=== PATIENT | male | born 1975 | race African-American/Black ===

== ENCOUNTER 2019-03-31 10:16 | Emergency (ER) | payer SELFPAY ==
[2019-03-31] MEDS ORDERED: IPRATROPIUM/ALBUTEROL 0.5-2.5 MG/3 ML AMPUL NEB ONE ×2 (10:55→10:57)
[2019-03-31] MEDS ORDERED: METHYLPREDNISOLONE INJ 125 MG/2 ML SDV IV ONE (11:01)
--- NOTE | 2019-03-31 11:04 | ER Document Report ---
ED Medical Screen (RME) - General Chief Complaint: Asthma Exacerbation Stated Complaint: DIFFICULTY BREATHING Time Seen by Provider: 03/31/19 10:58 Mode of Arrival: Ambulatory Information source: Patient TRAVEL OUTSIDE OF THE [place] IN LAST 30 DAYS: No - HPI Patient complains to provider of: ASTHMA FLARED UP Notes: 03/31/19 11:02 Patient here with complaints of asthma flareup. Patient is a history of asthma. States been coughing for about a month now. Over the last few days, he is felt like his asthma has flared up. He is now feeling very short of breath. No fever. Chest pain with cough only. No hemoptysis. No leg pain or leg swelling, no history of DVT or PE, no cancer, no recent trips or surgeries. Patient is from [place], has been here since December. Exam Patient appears to be short of breath with tachypnea and increased work of breathing noted. Respiratory expiratory wheezing noted throughout. Heart s ounds normal. Plan CBC, CMP, troponin, EKG, chest x-ray, DuoNeb ordered in triage and started immediately. Solu-Medrol, IV. An initial examination was made on the patient as part of the triage process, and it was determined a more comprehensive evaluation was necessary. Initial labs were ordered and patient was transferred to another provider in the ED who assumed care and finished evaluation and plan. - Related Data Allergies/Adverse Reactions: No Known Allergies Allergy (Verified 03/31/19 10:57) Physical Exam - Vital signs Vitals: Temp Pulse Resp BP Pulse Ox 98.4 F 94 30 H 140/79 H 96 03/31/19 10:03/31/19 10:03/31/19 10:03/31/19 10:03/31/19 10:29 Course - Vital Signs Vital signs: Temp Pulse Resp BP Pulse Ox 98.4 F 94 30 H 140/79 H 96 03/31/19 10:03/31/19 10:03/31/19 10:03/31/19 10:03/31/19 10:29
[2019-03-31 11:41] LABS: ABSOLUTE EOSINOPHILS # (AUTO) 1.2 10^3/uL (0.0-0.6); ABSOLUTE LYMPHOCYTES (AUTO) 2.1 10^3/uL (0.5-4.7); ABSOLUTE MONOCYTES (AUTO) 0.6 10^3/uL (0.1-1.4); ABSOLUTE NEUT (AUTO) 3.9 10^3/uL (1.7-8.2); BASOPHILS % (AUTO) 0.5 % (0-2); EOSINOPHILS % (AUTO) 15.6 % (0-6); HEMATOCRIT 44.5 % (37.9-51.0); HEMOGLOBIN 14.8 g/dL (13.5-17.0); LYMPHOCYTES % (AUTO) 26.8 % (13-45); MEAN CORPUSCULAR HEMOGLOBIN 30.5 pg (27.0-33.4); MEAN CORPUSCULAR HGB CONC 33.2 g/dL (32.0-36.0); MEAN CORPUSCULAR VOLUME 92 fl (80-97); MONOCYTES % (AUTO) 7.6 % (3-13); PLATELET COUNT 252 10^3/uL (150-450); RED BLOOD COUNT 4.86 10^6/uL (4.35-5.55); RED CELL DISTRIBUTION WIDTH 13.4 % (11.5-14.0); SEGMENTED NEUTROPHILS % (AUTO) 49.5 % (42-78); TOTAL CELLS COUNTED % (AUTO) 100 %; WHITE BLOOD COUNT 7.9 10^3/uL (4.0-10.5)
[2019-03-31 12:00] LABS: ALANINE AMINOTRANSFERASE 39 U/L (21-72); ALBUMIN 3.9 g/dL (3.5-5.0); ALKALINE PHOSPHATASE 60 U/L (38-126); ANION GAP 9 (5-19); ASPARTATE AMINO TRANSFERASE 30 U/L (17-59); BILIRUBIN,DIRECT 0.2 mg/dL (0.0-0.4); BILIRUBIN,TOTAL 0.6 mg/dL (0.2-1.3); BLOOD UREA NITROGEN 11 mg/dL (7-20); CALCIUM 9.5 mg/dL (8.4-10.2); CARBON DIOXIDE 29 mmol/L (22-30); CHLORIDE 105 mmol/L (98-107); GLUCOSE 81 mg/dL (75-110); POTASSIUM 4.2 mmol/L (3.6-5.0); SODIUM 143.3 mmol/L (137-145)
--- NOTE | 2019-03-31 12:04 | RADIOLOGY REPORT (SQ) ---
EXAM DESCRIPTION: CHEST 2 VIEWS COMPLETED DATE/TIME: 03/31/2019 11:56 am REASON FOR STUDY: DYSPNEA COMPARISON: None. EXAM PARAMETERS: NUMBER OF VIEWS: two views TECHNIQUE: Digital Frontal and Lateral radiographic views of the chest acquired. RADIATION DOSE: NA LIMITATIONS: none FINDINGS: LUNGS AND PLEURA: No opacities, masses or pneumothorax. No pleural effusion. MEDIASTINUM AND HILAR STRUCTURES: No masses or contour abnormalities. HEART AND VASCULAR STRUCTURES: Heart normal size. No evidence for failure. BONES: No acute findings. HARDWARE: None in the chest. OTHER: No other significant finding. IMPRESSION: No acute abnormality of the lungs. No focal airspace opacity. TECHNICAL DOCUMENTATION: JOB ID: [id number] [employer] All Rights Reserved Reading location - IP/workstation name: [email or web address]
[2019-03-31] MEDS ORDERED: MAGNESIUM SULFATE/D5W 1 GM/100 ML RTUPB IV ONE ×2 (13:31→13:32)
[2019-03-31] MEDS ORDERED: ALBUTEROL SULFATE 0.083% NEB 2.5 MG/3 ML AMPUL NEB ONE (13:32)
--- NOTE | 2019-03-31 13:40 | ER Document Report ---
ED General - General Chief Complaint: Asthma Exacerbation Stated Complaint: DIFFICULTY BREATHING Time Seen by Provider: 03/31/19 10:58 Primary Care Provider: KAYLIN BELLO MD [ACTIVE STAFF] - Follow up in 1 week Mode of Arrival: Ambulatory TRAVEL OUTSIDE OF THE [place] IN LAST 30 DAYS: No - HPI Notes: Patient is a 43-year-old male with a history of asthma who presents to the emergency department complaining of an asthma flareup that has been ongoing over the last couple months, but increasing over the past week. Patient states that he has had flareups frequently like this in the past with associated wheezing, sob, and cough. Patient states that he does not have any more of his ventolin inhaler at his house which works well for him. Patient states he does have associated dry cough and some pleuritic pain only with the cough. Patient has otherwise been eating and drinking without difficulty. He is urinating normally and having normal bowel movements. Denies drug allergies. No other concerns or complaints. Denies any headache, fever, URI, sore throat, chest pain, palpitations, syncope, abdominal pain, nausea/vomiting/diarrhea, urinary retention, dysuria, hematuria, or rash. - Related Data Allergies/Adverse Reactions: No Known Allergies Allergy (Verified 03/31/19 10:57) Past Medical History - General Information source: Patient - Social History Smoking Status: Current Every Day Smoker Chew tobacco use (# tins/day): No Frequency of alcohol use: Rare Drug Abuse: None Family History: Reviewed & Not Pertinent Patient has suicidal ideation: No Patient has homicidal ideation: No Pulmonary Medical History: Reports: Hx Asthma Renal/ Medical History: Denies: Hx Peritoneal Dialysis Review of Systems - Review of Systems -: Yes All other systems reviewed and negative Physical Exam - Vital signs Vitals: Temp Pulse Resp BP Pulse Ox 98.4 F 94 30 H 140/79 H 96 03/31/19 10:29 03/31/19 10:29 03/31/19 10:29 03/31/19 10:03/31/19 10:29 - Notes Notes: PHYSICAL EXAMINATION: GENERAL: Well-appearing, well-nourished and in no acute distress. HEAD: Atraumatic, normocephalic. EYES: Pupils equal round and reactive to light, extraocular movements intact, sclera anicteric, conjunctiva are normal. ENT: Nares patent and without discharge. oropharynx clear without exudates. No tonsilar hypertrophy or erythema. Moist mucous membranes. NECK: Normal range of motion, supple without lymphadenopathy LUNGS: wheezing throughout. no retractions or significant tachypneia at this t aidee. HEART: Regular rate and rhythm without murmurs, rubs, gallops. ABDOMEN: Soft, nontender, nondistended abdomen. No guarding, no rebound. No masses appreciated. Normal bowel sounds present. No CVA tenderness bilaterally. Musculoskeletal: FROM to passive/active. Strength 5+/5. Josefina neg. No asymmetry to LE's. Extremities: No cyanosis, clubbing, or edema b/l. Peripheral pulses 2+. Cap illary refill less than 3 seconds. NEUROLOGICAL: Normal speech, normal gait. PSYCH: Normal mood, normal affect. SKIN: Warm, Dry, normal turgor, no rashes or lesions noted. Course - Re-evaluation Re-evalutation: 03/31/19 Patient is an afebrile, well-hydrated, 43-year-old male who presents the emergency department with acute asthma exacerbation. Vitals are currently acceptable without significant tachycardia, tachypnea, or hypoxia. PE is otherwise unremarkable. Patient is nontoxic-appearing and is tolerating p.o. without difficulty. Patient was given Solu-Medrol and breathing treatment at triage. I did add magnesium and another breathing treatment to his regimen. Patient's lung sounds have greatly improved since my initial evaluation. Patient states that he is feeling much better and would like to go home. Leobardo jacque was reevaluated and he was eating wings and fries as well as drinking soda. Patient is otherwise PERC/Wells negative. He has no chest pain at rest or any further shortness of breath, dyspnea. Low suspicion for any ACS, PE, pneumothorax, pericarditis, dissection, respiratory compromise, severe dehydration, sepsis, meningitis, or other systemic emergent condition at this time. Patient is aware that this condition can change from initial presentation and he needs to monitor symptoms closely and seek medical attention for any acute changes. Rx for a steroid taper. Dispensed ventolin inhaler. Recommend conservative measures for symptoms. Recheck with your PCM in 3-5 days. Return to the ED with any worsening/concerning symptoms otherwise as reviewed in discharge. Patient is in agreement. - Vital Signs Vital signs: Temp Pulse Resp BP Pulse Ox 98.4 F 94 30 H 140/79 H 96 03/31/19 10:29 03/31/19 10:29 03/31/19 10:29 03/31/19 10:29 03/31/19 10:29 - Laboratory Result Diagrams: 03/31/19 11:28 03/31/19 11:28 Laboratory results interpreted by me: 03/31/19 11:28 Eosinophils % 15.6 H Absolute Eosinophils 1.2 H Discharge - Discharge Clinical Impression: Acute asthma exacerbation Qualifiers: Asthma severity: mild Asthma persistence: intermittent Qualified Code(s): J45.21 - Mild intermittent asthma with (acute) exacerbation Condition: Stable Disposition: HOME, SELF-CARE Instructions: Asthma ([facility]) Additional Instructions: Maintain adequate fluid and food intake Use inhaler as directed Healthy diet Monitor symptoms for any acute changes Recheck with your PCM in 2-3 days Consider a follow-up with Pulmonology Return to the ED with any worsening symptoms and/or development of fever, headache, chest pain, palpitations, syncope, shortness of breath, trouble breathing, abdominal pain, n/v/d, blood in stool/urine, loss of control of bowel/bladder, urinary retention, muscle weakness/paralysis, numbness/tingling, or other worsening symptoms that are concerning to you. Prescriptions: Prednisone [Deltasone 20 mg Tablet] 3 tab PO DAILY 4 Days tablet Forms: Elevated Blood Pressure, Smoking Cessation Education Referrals: KAYLIN BELLO MD [ACTIVE STAFF] - Follow up in 1 week
[2019-03-31] MEDS ORDERED: ALBUTEROL SULFATE HFA (90 MCG/PUFF) 8 GM MDI (1 MDI/ER DISP) IH ONE (14:23)
[2019-03-31 15:10] VITALS: BP 139/91
--- NOTE | 2019-03-31 23:13 | EKG REPORT ---
SEVERITY:- BORDERLINE ECG - SINUS RHYTHM PROBABLE LEFT ATRIAL ABNORMALITY : Confirmed by: Thomas Parada 31-Mar-2019 23:12:04
== END 2019-03-31 15:09 | disposition home or self-care (01) ==
LOC: ER 10:16
DX: J45.21 Mild intermittent asthma with (acute) exacerbation (principal); R06.02 Shortness of breath; R05 Cough; F17.200 Nicotine dependence, unspecified, uncomplicated
CPT/HCPCS: 93005; 94640 ×2; 99285; 96375; 96365; 36415; 85025; 80053; 84484; 71046; 93010; J2930; J3475; J3490; J7620

== ENCOUNTER 2019-08-11 19:31 | Emergency (ER) | payer SELFPAY ==
[2019-08-11] MEDS ORDERED: PREDNISONE 20 MG TABLET PO ONE (20:45)
[2019-08-11] MEDS ORDERED: IPRATROPIUM/ALBUTEROL 0.5-2.5 MG/3 ML AMPUL NEB ONE (20:45)
--- NOTE | 2019-08-11 20:46 | ER Document Report ---
ED Medical Screen (RME) - General Chief Complaint: Asthma Exacerbation Stated Complaint: POSSIBLE ASTHMA Time Seen by Provider: 08/11/19 20:42 Mode of Arrival: Ambulatory Information source: Patient Notes: This 44-year-old presents to the emergency department with coughing difficulty breathing for the past 2 days. Reports history of asthma. Reports he is still smoking but not as much. Denies fever vomiting diarrhea. Reports he has been using his inhaler more without relief of symptoms. Respiratory rate even unlabored no retractions, chest tight TRAVEL OUTSIDE OF THE [place] IN LAST 30 DAYS: No - HPI Onset: Other Onset/Duration: Persistent Quality of pain: No pain Associated Symptoms: Cough (nonproductive) Exacerbated by: Denies Relieved by: Denies Similar symptoms previously: Yes Recently seen / treated by doctor: No - Related Data Allergies/Adverse Reactions: No Known Allergies Allergy (Verified 03/31/19 10:57) Past Medical History - General Information source: Patient - Social History Cigarette use (# per day): Yes Frequency of alcohol use: Rare Drug Abuse: None Family history: None Pulmonary Medical History: Reports: Hx Asthma Renal/ Medical History: Denies: Hx Peritoneal Dialysis Surgical Hx: Negative Review of Systems - Review of Systems Notes: Review HPI for review of systems., All other systems negative Physical Exam - Vital signs Vitals: Temp Pulse Resp BP Pulse Ox 98.8 F 88 18 134/86 H 94 08/11/19 19:35 08/11/19 19:35 08/11/19 19:35 08/11/19 19:35 08/11/19 19:35 - General General appearance: Appears well, Alert In distress: None - HEENT Head: Normocephalic, Atraumatic Eyes: Normal Conjunctiva: Normal Mucous membranes: Normal, Moist Neck: Normal, Supple. No: Lymphadenopathy - Respiratory Respiratory status: No respiratory distress Chest status: Nontender Breath sounds: Decreased air movement, Rhonchi Chest palpation: Normal - Cardiovascular Rhythm: Regular Heart sounds: Normal auscultation Murmur: No - Abdominal Inspection: Normal - Back Back: Normal - Extremities General upper extremity: Normal ROM, Normal strength General lower extremity: Normal ROM, Normal weight bearing - Neurological Neuro grossly intact: Yes Cognition: Normal Orientation: AAOx4 Abraham Coma Scale Eye Opening: Spontaneous [place] Coma Scale Verbal: Oriented Abraham Coma Scale Motor: Obeys Commands [place] Coma Scale Total: 15 Speech: Normal - Psychological Associated symptoms: Normal affect, Normal mood - Skin Skin Temperature: Warm Skin Moisture: Dry Skin Color: Normal Course - Re-evaluation Re-evalutation: 08/11/19 21:08 Patient received DuoNeb he is breathing a little bit better. Second neb treatment ordered. Patient received steroids. 08/11/19 22:36 Patient breathing much better after second neb treatment. He was provided with prednisone here. Chest x-ray is negative for pneumonia. Patient was instructed on the importance of quit smoking. Instructed on inhaler. Instructed to follow-up with primary care provider within 1 week for recheck he verbalized understanding to all instructions. Dictation of this chart was performed using voice recognition software; therefore, there may be some unintended grammatical errors. Chest X-Ray 08/11/19 21:11 IMPRESSION: No acute cardiopulmonary disease. - Vital Signs Vital signs: Temp Pulse Resp BP Pulse Ox 98.8 F 88 18 134/86 H 94 08/11/19 19:35 08/11/19 19:35 08/11/19 19:35 08/11/19 19:35 08/11/19 19:35 - Diagnostic Test Radiology reviewed: Image reviewed, Reports reviewed Doctor's Discharge - Discharge Clinical Impression: Difficulty breathing Asthma Qualifiers: Asthma severity: unspecified severity Asthma persistence: unspecified Asthma complication type: uncomplicated Qualified Code(s): J45.909 - Unspecified asthma, uncomplicated Condition: Stable Disposition: HOME, SELF-CARE Instructions: Asthma ([facility]), Inhaled Bronchodilators ([facility]), Stop Smoking ([facility]) Additional Instructions: *You have been evaluated for a difficulty breathing history of asthma *Use the inhaler as prescribed Take medication as prescribed Quit smoking *Follow up with a primary care provider within one week for recheck *Return to ED for increasing fever, cough, worsening condition, changes, needs Monitor your blood pressure. Your blood pressure was elevated today. This may be because you were anxious, in pain or because you need medication. It is important to follow up with your primary care provider for full evaluation. Prescriptions: Prednisone [Deltasone 10 mg Tablet] 10 mg PO ASDIR PRN #21 tablet PRN Reason: Forms: Smoking Cessation Education, Elevated Blood Pressure
[2019-08-11] MEDS ORDERED: ALBUTEROL SULFATE 0.083% NEB 2.5 MG/3 ML AMPUL NEB ONE (21:08)
--- NOTE | 2019-08-11 22:13 | RADIOLOGY REPORT (SQ) ---
XR CHEST 2 VIEWS CLINICAL STATEMENT: cough COMPARISON: 03/31/2019 FINDINGS: Cardiomediastinal silhouette is within normal limits. There is no focal lung consolidation or pleural effusion. No evidence of pulmonary edema or pneumothorax. IMPRESSION: No acute cardiopulmonary disease.
[2019-08-11] MEDS ORDERED: ALBUTEROL SULFATE HFA (90 MCG/PUFF) 8 GM MDI (1 MDI/ER DISP) IH ONE (22:33)
[2019-08-11 22:52] VITALS: BP 141/91
== END 2019-08-11 22:54 | disposition home or self-care (01) ==
LOC: ER 19:31
DX: R05 Cough (principal); R06.9 Unspecified abnormalities of breathing; J45.909 Unspecified asthma, uncomplicated; F17.210 Nicotine dependence, cigarettes, uncomplicated
CPT/HCPCS: 94640 ×2; 99284; 71046; J7512; J3490; J7620

== ENCOUNTER 2019-08-16 21:29 | Emergency (ER) | payer SELFPAY ==
[2019-08-16 23:24] VITALS: BP 139/97
[2019-08-17] MEDS ORDERED: ACETAMINOPHEN 325 MG TABLET PO ONE (01:43)
--- NOTE | 2019-08-17 02:42 | ER Document Report ---
ED General - General Chief Complaint: Groin Pain Stated Complaint: GROIN PAIN Time Seen by Provider: 08/17/19 01:35 Notes: Patient is a 44-year-old male presents to the emergency department for pain in his right groin as well as right testicle. Patient states he is noticed a "lump" for approximately the last 2 weeks. Patient's denying any increase or decrease in the size. He is denying any fevers he is denying any discharge from the site. Patient's denying any penile discharge or dysuria. States he recently did have sexual intercourse with a "new" individual. Patient denies any injury to his groin or testicles bilaterally. TRAVEL OUTSIDE OF THE [place] IN LAST 30 DAYS: No - Related Data Allergies/Adverse Reactions: No Known Allergies Allergy (Verified 08/16/19 21:56) Past Medical History - General Information source: Patient - Social History Smoking Status: Unknown if Ever Smoked Family History: Reviewed & Not Pertinent Pulmonary Medical History: Reports: Hx Asthma Renal/ Medical History: Denies: Hx Peritoneal Dialysis Review of Systems - Review of Systems Constitutional: denies: Fever EENT: No symptoms reported Cardiovascular: No symptoms reported Respiratory: No symptoms reported Gastrointestinal: See HPI Genitourinary: See HPI Male Genitourinary: See HPI Musculoskeletal: No symptoms reported Skin: No symptoms reported Hematologic/Lymphatic: No symptoms reported Neurological/Psychological: No symptoms reported Physical Exam - Vital signs Vitals: Temp Pulse Resp BP Pulse Ox 97.8 F 78 20 139/97 H 94 08/16/19 23:22 08/16/19 23:22 08/16/19 23:22 08/16/19 23:22 08/16/19 23:22 - Notes Notes: GENERAL: Alert, interacts well. No acute distress. HEAD: Normocephalic, atraumatic. EYES: Pupils equal, round, and reactive to light. Extraocular movements intact. ENT: Oral mucosa moist, tongue midline. NECK: Full range of motion. Supple. Trachea midline. LUNGS: Clear to auscultation bilaterally, no wheezes, rales, or rhonchi. No respiratory distress. HEART: Regular rate and rhythm. No murmur ABDOMEN: Soft, non-tender. Non-distended. Bowel sounds present in all 4 quadrants. EXTREMITIES: Moves all 4 extremities spontaneously. No edema, normal radial and dorsalis pedis pulses bilaterally. No cyanosis. BACK: no cervical, thoracic, lumbar midline tenderness. No saddle anesthesia, normal distal neurovascular exam. NEUROLOGICAL: Alert and oriented x3. Normal speech. cranial nerves II through XII grossly intact. PSYCH: Normal affect, normal mood. SKIN: Warm, dry, normal turgor. No rashes or lesions noted. Genitalia: [employer] PCT, tenderness noted right groin, right scrotum. No redness or inflammation noted right or left testicle. No penile discharge noted. Course - Re-evaluation Re-evalutation: 08/17/19 05:51 Scrotum Ultrasound 08/17/19 01:43 IMPRESSION: No evidence of torsion. Right varicocele and bilateral hydroceles. Small vascular right inguinal lymph nodes. Patient's gonorrhea and Chlamydia testing were pending in the emergency department. Patient wishes for prophylactic treatment. Discussed follow-up with urology. At this time will discharge with return precautions and follow-up recommendations. Verbal discharge instructions given a the bedside and opportunity for questions given. Medication warnings reviewed. Patient is in agreement with this plan and has verbalized understanding of return precautions and the need for primary care follow-up in the next 24-72 hours. This medical record was dictated with voice recognizing software. There may be grammatical, syntax errors that are unintended. - Vital Signs Vital signs: Temp Pulse Resp BP Pulse Ox 97.8 F 78 20 139/97 H 94 08/16/19 23:22 08/16/19 23:22 08/16/19 23:22 08/16/19 23:22 08/16/19 23:22 Discharge - Discharge Clinical Impression: Varicocele Condition: Stable Disposition: HOME, SELF-CARE Additional Instructions: As we discussed you have been seen and treated in the emergency department for varicocele. Is my recommendation that you follow-up with urology. Phone numbers will be provided in this packet. You have also been prophylactically treated for gonorrhea and chlamydia. To get your culture results call [phone]. Please return to the emergency room for any further concerns. Referrals: JAG KAYE MD [NO LOCAL MD] - Follow up as needed
--- NOTE | 2019-08-17 03:34 | RADIOLOGY REPORT (SQ) ---
CLINICAL HISTORY: right scrotal pain COMPARISON: None. TECHNIQUE: US SCROTUM on 08/17/2019 1:43 AM CDT FINDINGS: Right testicle measures 4.5 x 2.2 x 1.9 cm and is slightly hyperechoic. The epididymis measures 9 mm. There is patent flow to the testicle. There is a right-sided varicocele. Left testicle measures 4.3 x 2.5 x 2.0 cm and is slightly hyperechoic. The epididymis measures 9 mm. There is patent flow to the testicle. There are small bilateral hydroceles. There are at least two hypoechoic nodules in the right inguinal area, measuring 2.1 and 1.7 cm. These may represent lymph nodes. IMPRESSION: No evidence of torsion. Right varicocele and bilateral hydroceles. Small vascular right inguinal lymph nodes.
[2019-08-17] MEDS ORDERED: CEFTRIAXONE INJ 250 MG VIAL IM ONE (05:50)
[2019-08-17] MEDS ORDERED: AZITHROMYCIN 250 MG TABLET PO ONE (05:50)
[2019-08-17] MEDS ORDERED: AZITHROMYCIN 250 MG TABLET ONE ×2 (06:36→06:40)
[2019-08-17 06:45] LABS: CHLAM PCR NOT DETECTED (NOT DETECT)
[2019-08-17 08:03] LABS: APPEARANCE,URINE CLEAR; BILIRUBIN,URINE NEGATIVE (NEGATIVE); COLOR,URINE COLORLESS; GLUCOSE, URINE NEGATIVE (NEGATIVE); KETONES,URINE NEGATIVE (NEGATIVE); LEUKOCYTE ESTERASE,URINE NEGATIVE (NEGATIVE); NITRITE,URINE NEGATIVE (NEGATIVE); PROTEIN,URINE NEGATIVE (NEGATIVE); UROBILINOGEN,URINE NEGATIVE mg/dL (<2.0)
[2019-08-17 08:05] LABS: URINE SPECIFIC GRAVITY 1.009
== END 2019-08-17 07:01 | disposition home or self-care (01) ==
LOC: ER 21:29
DX: I86.1 Scrotal varices (principal); R10.30 Lower abdominal pain, unspecified
CPT/HCPCS: 81001; 87491; 87591; 76870; 93976; J0696; 96372; 99284

== ENCOUNTER 2019-08-19 01:41 | Emergency (ER) | payer SELFPAY ==
[2019-08-19] MEDS ORDERED: IPRATROPIUM/ALBUTEROL 0.5-2.5 MG/3 ML AMPUL NEB ONE (01:56)
[2019-08-19] MEDS ORDERED: PREDNISONE 20 MG TABLET PO ONE (01:56)
[2019-08-19] MEDS: ALBUTEROL SULFATE 0.083% NEB 2.5 MG/3 ML AMPUL NEB SCH ×2 (02:06→02:58)
--- NOTE | 2019-08-19 02:19 | ER Document Report ---
ED Respiratory Problem - General Chief Complaint: Shortness Of Breath Stated Complaint: TROUBLE BREATHING Time Seen by Provider: 08/19/19 02:17 Mode of Arrival: Ambulatory Information source: Patient Notes: HISTORY OF PRESENT ILLNESS: Patient is a 44-year-old male with a past medical history of asthma who presents with cough and congestion for over 1 week. Patient presented over 1 week ago for similar symptoms, was given course of steroids and albuterol with little improvement. Location: Chest Onset: Week and half ago Alleviation: None Provocation: Coughing Quality: Coughing, wheezing Radiation: None Severity: Mild to moderate Timing: Constant History of CAD: None Associated symptoms: Denies fevers or chills, no shortness of breath, no chest pain REVIEW OF SYSTEMS: CONSTITUTIONAL : Denies fever or chills, no sweats. Denies recent illness. EENT: Denies eye, ear, throat, or mouth pain or symptoms. Denies nasal or sinus congestion. CARDIOVASCULAR: Denies chest pain. Denies swelling of the legs. RESPIRATORY: Positive for cough but no chest congestion. Denies shortness of breath or difficulty breathing. Positive for wheezing. GASTROINTESTINAL: Denies abdominal pain. Denies nausea, vomiting, or diarrhea. Denies constipation. GENITOURINARY: Denies difficulty urinating, painful urination, burning, frequency, or blood in urine. MUSCULOSKELETAL: Denies neck or back pain or joint pain or swelling. SKIN: Denies rash or skin lesions. HEMATOLOGIC : Denies easy bruising or bleeding. LYMPHATIC: Denies swollen, enlarged glands. NEUROLOGICAL: Denies altered mental status or loss of consciousness. Denies headache. Denies weakness or paralysis or loss of use of either side. Denies problems with gait or speech. Denies sensory or motor loss. PSYCHIATRIC: Denies anxiety or stress or depression. All other systems reviewed and negative. PHYSICAL EXAMINATION: GENERAL: Well-appearing, well-nourished and in no acute distress. HEAD: Atraumatic, normocephalic. No scalp deformity, depression, or crepitance. EYES: Pupils are 3 mm and equal/round/reactive to light, extraocular movements intact, sclera anicteric, conjunctiva are normal. ENT: Nares patent bilaterally, oropharynx. Moist mucous membranes. No tonsil hypertrophy. NECK: Normal range of motion, supple without lymphadenopathy. LUNGS: Breath sounds present bilaterally, mild to moderate extra wheezes bilaterally. No rales or rhonchi. HEART: Regular rate and rhythm without murmurs, rubs, or gallops. 2+ peripheral pulses. Normal capillary refill. ABDOMEN: Soft, nontender, nondistended. Normoactive bowel sounds. No guarding, no rebound. No masses appreciated. BACK: Normal contour, no midline tenderness. Rectal exam deferred. GENITAL/PELVIC: Deferred. EXTREMITIES: Normal range of motion, no pitting or edema. No cyanosis. NEUROLOGICAL: No focal neurological deficits. Moves all extremities spontaneously and on command. PSYCH: Normal mood, normal affect. No suicidal thoughts/ideations. No homicidal thoughts/ideations. No hallucinations. SKIN: Warm, dry, normal turgor, no rashes or lesions noted. ASSESSMENT AND PLAN: This patient is a 44-year-old male who presents with cough and wheezing that likely represents asthma exacerbation versus acute bronchitis versus upper restaurant infection. 1. Will give oral steroids, DuoNeb breathing treatments, and obtain chest x-ray. 2. Will start if improved. TRAVEL OUTSIDE OF THE [place] IN LAST 30 DAYS: No - HPI Patient complains to provider of: Asthma, Cough Onset: Last week Duration: Continuous Initiating Event: URI Quality of pain: No pain Severity: Mild Pain Level: Denies Context: Smoker Short of Breath: Mild Cough: Nonproductive Sputum amount: None Associated symptoms: Cough Similar symptoms previously: Yes Recently seen / treated by doctor: Yes - Related Data Allergies/Adverse Reactions: No Known Allergies Allergy (Verified 08/16/19 21:56) Past Medical History - General Information source: Patient - Social History Smoking Status: Current Every Day Smoker Chew tobacco use (# tins/day): No Frequency of alcohol use: None Drug Abuse: None Lives with: Alone Family History: Reviewed & Not Pertinent Patient has suicidal ideation: No Patient has homicidal ideation: No - Past Medical History Cardiac Medical History: Reports: None Pulmonary Medical History: Reports: Hx Asthma EENT Medical History: Reports: None Neurological Medical History: Reports: None Endocrine Medical History: Reports: None Renal/ Medical History: Reports: None. Denies: Hx Peritoneal Dialysis Malignancy Medical History: Reports None GI Medical History: Reports: None Musculoskeletal Medical History: Reports None Skin Medical History: Reports None Psychiatric Medical History: Reports: None Traumatic Medical History: Reports: None Infectious Medical History: Reports: None Surgical Hx: Negative Past Surgical History: Reports: None - Immunizations Immunizations up to date: Yes Hx Diphtheria, Pertussis, Tetanus Vaccination: Yes Review of Systems - Review of Systems Constitutional: No symptoms reported EENT: No symptoms reported Cardiovascular: No symptoms reported Respiratory: See HPI, Cough, Wheezing Gastrointestinal: No symptoms reported Genitourinary: No symptoms reported Male Genitourinary: No symptoms reported Musculoskeletal: No symptoms reported Skin: No symptoms reported Hematologic/Lymphatic: No symptoms reported Neurological/Psychological: No symptoms reported -: Yes All other systems reviewed and negative Physical Exam - Vital signs Vitals: Temp Pulse Resp BP Pulse Ox 98.2 F 80 20 139/97 H 94 08/19/19 01:53 08/19/19 01:53 08/19/19 01:53 08/19/19 01:53 08/19/19 01:53 Interpretation: Normal Course - Re-evaluation Re-evalutation: 08/19/19 05:08 Chest x-ray is negative. Will discharge the patient home with strict return precautions and follow-up with primary care. All results were explained to and discussed with the patient, and all questions addressed and answered. The patient voices both understanding and agreeing with the plan. - Vital Signs Vital signs: Temp Pulse Resp BP Pulse Ox 98.3 F 91 25 H 155/95 H 93 08/19/19 04:10 08/19/19 04:10 08/19/19 04:10 08/19/19 04:10 08/19/19 04:10 - Diagnostic Test Radiology reviewed: Image reviewed, Reports reviewed Discharge - Discharge Clinical Impression: Acute bronchitis Qualifiers: Bronchitis organism: unspecified organism Qualified Code(s): J20.9 - Acute bronchitis, unspecified Condition: Good Disposition: HOME, SELF-CARE Instructions: Bronchitis (REPLACED BY [facility]) Additional Instructions: You have been evaluated in the Emergency Department for cough and wheezing most likely related to bronchitis. While here, you had breathing treatments and improved and it is now safe to be discharged home. Please follow-up with your primary physician as instructed in one week to be rechecked. Return to the Emergency Department if you experience worsening breathing, increasing cough, chest pain, high fevers, or any other concerning symptoms. Prescriptions: Methylprednisolone [Medrol Dosepack (4 mg/Tab) 21 Tab/Dosepak] 4 mg PO ASDIR PRN #21 tab.ds.pk PRN Reason: Azithromycin [Zithromax 250 mg Tablet] 250 mg PO ASDIR PRN #6 tablet PRN Reason: Print Language: Maltese
--- NOTE | 2019-08-19 03:25 | RADIOLOGY REPORT (SQ) ---
EXAM DESCRIPTION: XR CHEST 2 VIEWS COMPLETED DATE/TME: 08/19/2019 01:56 CLINICAL HISTORY: 44 years, Male, DIFFICULTY BREATHING Comparison: August 11, 2019 FINDINGS: No focal lung consolidation. No pleural effusion. No pneumothorax. Cardiac and mediastinal silhouette is unremarkable. No acute osseous abnormality. Soft tissues are unremarkable. IMPRESSION: No acute findings. No focal lung consolidation.
[2019-08-19 05:27] VITALS: BP 147/87
== END 2019-08-19 05:27 | disposition home or self-care (01) ==
LOC: ER 01:41
DX: J20.9 Acute bronchitis, unspecified (principal); J45.909 Unspecified asthma, uncomplicated; R05 Cough; F17.200 Nicotine dependence, unspecified, uncomplicated
CPT/HCPCS: 71046; J7512; J7620

== ENCOUNTER 2020-07-08 14:21 | Emergency (ER) | payer OTHER ==
[2020-07-08] MEDS ORDERED: KETOROLAC TROMETHAMINE 60 MG/2 ML SDV IM ONE (14:39)
--- NOTE | 2020-07-08 14:43 | ER Document Report ---
HPI - HPI Time Seen by Provider: 07/08/20 14:35 Pain Level: 4 Notes: 44-year-old male with a history of chronic neck pain presents emergency room with right-sided back pain that extends down to his knee for the last 2 and half weeks. Reports he is had chronic back pain since he was a teenager. Denies any recent trauma or fall. Denies any numbness or tingling to bilateral lower extremities. Pain is 3 out of 5, achy and sharp with movement. Has tried [id number] Tylenol Profen without full relief. Denies fevers, chills, chest pain,palpitations, shortness of breath, dyspnea, nausea, vomiting, diarrhea, abdominal pain, hematuria,blurred vision, double vision, loss of vision, speech changes, LH, dizziness, syncope, headaches, wheezing, ST, URI, neck pain, weakness, bowel or bladder dysfunction, saddle anesthesia, numbness or tingling in bilateral upper or lower extremities equally, muscle paralysis, weakness in bilateral upper or lower extremities equally or rash. Denies IV drug use. MEDICATIONS: I agree with the patient medications as charted by the RN. ALLERGIES: I agree with the allergies as charted by the RN. PAST MEDICAL HISTORY/PAST SURGICAL HISTORY: Reviewed and agree as charted by RN. SOCIAL HISTORY: Reviewed and agree as charted by RN. FAMILY HISTORY: No significant familial comorbid conditions directly related to patient complaint EXAM: Reviewed vital signs as charted by RN. REVIEW OF SYSTEMS:reviewed vital signs by RN CONSTITUTIONAL : Denies fever, chills, or sweats. Denies recent illness. EENT: Denies eye, ear, throat, or mouth pain or symptoms. Denies nasal or sinus congestion or discharge. Denies throat, tongue, or mouth swelling or difficulty swallowing. CARDIOVASCULAR: Denies chest pain. Denies palpitations or racing or irregular heart beat. Denies ankle edema. RESPIRATORY: Denies cough, cold, or chest congestion. Denies shortness of breath, difficulty breathing, or wheezing. GASTROINTESTINAL: Denies abdominal pain or distention. Denies nausea, vomiting, or diarrhea. Denies blood in vomitus, stools, or per rectum. Denies black, tarry stools. Denies constipation. GENITOURINARY: Denies difficulty urinating, painful urination, burning, frequency, blood in urine, or discharge. MUSCULOSKELETAL: Reports right-sided lower back pain denies neck pain or stiffness. Denies joint pain or swelling. SKIN: Denies rash, lesions or sores. HEMATOLOGIC : Denies easy bruising or bleeding. LYMPHATIC: Denies swollen, enlarged glands. NEUROLOGICAL: Denies confusion or altered mental status. Denies passing out or loss of consciousness. Denies dizziness or lightheadedness. Denies headache. Denies weakness or paralysis or loss of use of either side. Denies problems with gait or speech. Denies sensory loss, numbness, or tingling. Denies seizures. PSYCHIATRIC: Denies anxiety or stress. Denies depression, suicidal ideation, or homicidal ideation. ALL OTHER SYSTEMS REVIEWED AND NEGATIVE. Dictation was performed using [employer] voice recognition software PHYSICAL EXAMINATION: GENERAL: Well-appearing, well-nourished and in no acute distress. HEAD: Atraumatic, normocephalic. EYES: Pupils equal round and reactive to light, extraocular movements intact, sclera anicteric, conjunctiva are normal. ENT: Nares patent, oropharynx clear without exudates. Moist mucous membranes. NECK: Normal range of motion, supple without lymphadenopathy LUNGS: Breath sounds clear to auscultation bilaterally and equal. No wheezes rales or rhonchi. HEART: Regular rate and rhythm without murmurs ABDOMEN: Soft, nontender, nondistended abdomen. No guarding, no rebound. No masses appreciated. Musculoskeletal: Normal range of motion, no pitting or edema. No cyanosis.Pain with flexion and extension at 50 degrees, positive straight leg test on irhgt. Normal hip rotation, slight pain when rotating to the left on the right. DTR +2 in BLE equally. Strength 5 out of 5 both distally and proximally to bilateral lower extremities normal motor and sensory function in BLE equally. Distal pulses + 2 BLE equally. Noted paraspinal tenderness near L2 and L3. Strength 5 out of 5 in bilateral lower extremities equally. no spinal tenderness. No CVA tenderness bilaterally. Femoral pulses + 2 bilaterally and equally. No abrasions, scars, lacerations, ecchymosis of any recent trauma. normal gait. NEUROLOGICAL: Cranial nerves grossly intact. Normal speech, normal gait. Normal sensory, motor exams PSYCH: Normal mood, normal affect. SKIN: Warm, Dry, normal turgor, no rashes or lesions noted. - REPRODUCTIVE Reproductive: DENIES: : Past Medical History - General Information source: Patient - Social History Smoking Status: Current Every Day Smoker Family History: Reviewed & Not Pertinent Patient has homicidal ideation: No Pulmonary Medical History: Reports: Hx Asthma Renal/ Medical History: Denies: Hx Peritoneal Dialysis - Immunizations Immunizations up to date: Yes Hx Diphtheria, Pertussis, Tetanus Vaccination: Yes Vertical Provider Document - CONSTITUTIONAL Agree With Documented VS: Yes Exam Limitations: No Limitations General Appearance: WD/WN - INFECTION CONTROL TRAVEL OUTSIDE OF THE [place] IN LAST 30 DAYS: No Course - Re-evaluation Re-evalutation: 07/08/20 14:42 Afebrile vital stable no distress. Nurses notes reviewed. Lumbar x-ray negative for any acute fracture dislocation. Patient given 60 mg of Toradol IM. Discussed the patient that he has an acute exacerbation of his right-sided sciatica. Discussed following up with clinical quality assurance specialist primary care provider. Discussed applying heat 20 minutes on 20 minutes off several times a day, taking naproxen muscle relaxers as prescribed, do not drive, drink or operate machinery while taking medication because sedation or cognitive impairment. Apply heat 20 minutes on 20 minutes off several times a day. B after performing a Medical Screening Examination, I estimate there is LOW risk for EXPANDING OR RUPTURED ABDOMINAL AORTIC ANEURYSM, CAUDA EQUINA SYNDROME, EPIDURAL MASS ABSCESS OR LESION(S), OSTEOMYELITIS,PERSONAL HISTORY OF CANCER, IMMUNOSUPPERSSSION, HISTORY OF IV DRUG USE, FRACTURE, CORD COMPERSSION, CANCER, RETROPERITONEAL BLEED, SPINAL EPIDURAL HEMATOMA, or HERNIATED DISK CAUSING SEVERE SPINAL STENOSIS, thus I consider the discharge disposition reasonable. I have reevaluated this patient multiple times and no significant life threatening changes are noted. The patient and I have discussed the diagnosis and risks, and we agree with discharging home and close follow-up. We also discussed returning to the Emergency Department immediately if new or worsening symptoms occur with the understanding that symptoms and presentations can change. We have discussed the symptoms which are most concerning (e.g., saddle anesthesia, urinary or bowel incontinence or retention, changing or worsening pain) that necessitate immediate return. - Vital Signs Vital signs: Temp Pulse Resp BP Pulse Ox 97.9 F 79 20 132/81 H 100 07/08/20 14:25 07/08/20 14:25 07/08/20 14:25 07/08/20 14:25 07/08/20 14:25 Discharge - Discharge Clinical Impression: Right sided sciatica, Lumbar back pain Condition: Stable Disposition: HOME, SELF-CARE Instructions: Low Back Pain ([facility]), Muscle Strain ([facility]), Pain Medication Injection ([facility]), Toradol Injection ([facility]), Warm Packs ([facility]) Additional Instructions: Your x-ray was negative for any acute fractures. You were given 60 mg of Toradol intramuscularly to treat your sciatic pains. I did prescribe anti- inflammatory muscle relaxers for you. Please take as directed, do not drive, drink or operate heavy machinery while taking muscle relaxers and call sedation or impairment of cognitive function. Follow-up with clinical quality assurance specialist and primary care provider next 24 to 48 hours as needed. Return immediately for any new or worsening symptoms. Follow up with primary care provider, call tomorrow to make followup appointment. Prescriptions: Naproxen 500 mg PO BID #10 tablet Methocarbamol [Robaxin 500 mg Tablet] 500 mg PO QID PRN #15 tablet PRN Reason: Referrals: MELIZA SIDHU MD [ACTIVE STAFF] - Follow up as needed TOBIN CISSE MD [ACTIVE STAFF] - Follow up as needed
--- NOTE | 2020-07-08 15:12 | RADIOLOGY REPORT (SQ) ---
EXAM DESCRIPTION: L SPINE WHOLE IMAGES COMPLETED DATE/TIME: 07/08/2020 3:02 pm REASON FOR STUDY: lbp pain x2.5 weeks, no trauma COMPARISON: None. NUMBER OF VIEWS: Five views including obliques. TECHNIQUE: AP, lateral, oblique, and sacral radiographic images acquired of the lumbar spine. LIMITATIONS: None. FINDINGS: MINERALIZATION: Normal. SEGMENTATION: Normal. No transitional anatomy. ALIGNMENT: Mild levocurvature of the lumbar spine. VERTEBRAE: Maintained height. No compression fracture. DISCS: Degenerative disc disease with loss of intervertebral disc space at L5-S1. Otherwise mild mul tilevel degenerative changes at the remainder of the lumbar spine. POSTERIOR ELEMENTS: Pedicles and facets are intact. No pars defect. HARDWARE: None in the spine. Surgical clips are noted at the upper abdomen. PARASPINAL SOFT TISSUES: Normal. PELVIS: SI joints intact. IMPRESSION: No radiographic evidence for acute fracture of the lumbar spine. Degenerative disc dise ase, worse at L5-S1. TECHNICAL DOCUMENTATION: JOB ID: [id number] 2010 [employer]- All Rights Reserved Reading location - IP/workstation name: [email or web address]
[2020-07-08 15:24] VITALS: BP 129/84
== END 2020-07-08 15:18 | disposition home or self-care (01) ==
LOC: ER 14:21
DX: M54.41 Lumbago with sciatica, right side (principal); M54.2 Cervicalgia; G89.29 Other chronic pain; F17.200 Nicotine dependence, unspecified, uncomplicated
CPT/HCPCS: 99283; 96372; 72110; J1885

== ENCOUNTER 2020-07-12 07:11 | Emergency (ER) | payer OTHER ==
--- NOTE | 2020-07-12 08:27 | ER Document Report ---
ED Neck/Back Problem - General Chief Complaint: Back Pain Stated Complaint: LOW BACK PAIN,LEFT LEG PAIN Time Seen by Provider: 07/12/20 08:26 Primary Care Provider: [facility] [Provider Group] - Follow up as needed RUDDY CAST MD [COMMUNITY BASED STAFF] - Follow up as needed Mode of Arrival: Ambulatory Information source: Patient Notes: Otherwise healthy 44-year-old male patient presents emergency department chief complaint of low back pain. Patient was seen here several days ago for same. Patient reports history of chronic back pain, states over the last week the pain is gotten significantly worse. He denies any specific injury. He reports pain is across his low back and down into his right buttock and right leg. He reports numbness and tingling all the way down to his right foot. He denies any urinary or bowel incontinence, denies any urinary retention or saddle anesthesia. Patient denies any IV drug use. He has not had fever, chills, na usea, vomiting or diarrhea. TRAVEL OUTSIDE OF THE [place] IN LAST 30 DAYS: No - Related Data Allergies/Adverse Reactions: No Known Allergies Allergy (Verified 07/12/20 08:10) Past Medical History - General Information source: Patient - Social History Smoking Status: Current Every Day Smoker Chew tobacco use (# tins/day): No Frequency of alcohol use: Occasional Drug Abuse: None Family History: Reviewed & Not Pertinent Patient has homicidal ideation: No Pulmonary Medical History: Reports: Hx Asthma Renal/ Medical History: Denies: Hx Peritoneal Dialysis - Immunizations Immunizations up to date: Yes Hx Diphtheria, Pertussis, Tetanus Vaccination: Yes Review of Systems - Review of Systems Constitutional: No symptoms reported EENT: No symptoms reported Cardiovascular: No symptoms reported Respiratory: No symptoms reported Gastrointestinal: No symptoms reported Genitourinary: No symptoms reported Male Genitourinary: No symptoms reported Musculoskeletal: Back pain Skin: No symptoms reported Hematologic/Lymphatic: No symptoms reported Neurological/Psychological: No symptoms reported -: Yes All other systems reviewed and negative Physical Exam - Vital signs Vitals: Temp Pulse Resp BP Pulse Ox 98.8 F 76 16 119/79 96 07/12/20 07:14 07/12/20 07:14 07/12/20 07:14 07/12/20 07:14 07/12/20 07:14 - Notes Notes: PHYSICAL EXAMINATION: GENERAL: Well-appearing, well-nourished and in no acute distress. HEAD: Atraumatic, normocephalic. EYES: Pupils equal round and reactive to light, extraocular movements intact, sclera anicteric, conjunctiva are normal. ENT: Nares patent, oropharynx clear without exudates. Moist mucous membranes. NECK: Normal range of motion, supple without lymphadenopathy LUNGS: Breath sounds clear to auscultation bilaterally and equal. No wheezes rales or rhonchi. HEART: Regular rate and rhythm without murmurs ABDOMEN: Soft, nontender, nondistended abdomen. No guarding, no rebound. No masses appreciated. Musculoskeletal: Tenderness to palpation along right lumbar paraspinous region, tenderness extends into right buttock. No vertebral tenderness, step-off or deformity. NEUROLOGICAL: Cranial nerves grossly intact. Normal speech, normal gait. Normal sensory, motor exams PSYCH: Normal mood, normal affect. SKIN: Warm, Dry, normal turgor, no rashes or lesions noted. Course - Re-evaluation Re-evalutation: 07/12/20 08:38 Patient appears well, nontoxic, vital signs reviewed and are within normal limits. Patient appears to be in mild-moderate discomfort. Patient was seen here several days ago, had normal plain films. Will CT patient's lumbar spine and provide pain medications. I suspect bulging disc. 07/12/20 10:[address] 07/12/20 08:35 IMPRESSION: Spondylosis L5-S1. Lytic endplate changes, probably due to chronic inflammation. Cannot entirely exclude discitis. Correlation with sed rate is recommended. Discussed with Dr. Morgan, will send for MRI. Patient updated on plan of care. Patient's pain is controlled after administration of medications here in the emergency department. Lumbar Spine CT 07/12/20 08:35 IMPRESSION: Spondylosis L5-S1. Lytic endplate changes, probably due to chronic inflammation. Cannot entirely exclude discitis. Correlation with sed rate is recommended. Lumbar Spine MRI 07/12/20 09:58 IMPRESSION: No evidence of discitis/osteomyelitis. Lumbosacral junction spondylotic changes notable for focal disc extrusion with 7 mm of caudal sublig amentous migration without free fragment. These findings result in moderate right neural foraminal stenosis with the appearance of contact with the right L5 and S1 nerve roots as detailed above. Results of lumbar spine MRI as outlined above. No discitis noted. Patient had labs drawn call, all labs were within normal limits. Patient given contact info for orthopedic surgeon who specializes in the spine. Patient will be prescribed medications to help with his symptoms, he will be encouraged to [facility] and/or also primary care for consideration of other treatment modalities such as physical therapy. - Vital Signs Vital signs: Temp Pulse Resp BP Pulse Ox 98.2 F 80 15 115/75 95 07/12/20 12:53 07/12/20 12:53 07/12/20 12:53 07/12/20 12:53 07/12/20 12:53 - Laboratory Result Diagrams: 07/12/20 10:30 07/12/20 10:30 Laboratory results interpreted by me: 07/12/20 07/12/20 10:30 12:47 Anion Gap 4 L Urine Blood SMALL H Urine Urobilinogen 2.0 H Discharge - Discharge Clinical Impression: Lumbar disc herniation Condition: Stable Disposition: HOME, SELF-CARE Additional Instructions: Please follow-up with orthopedics. Please take all medications as prescribed. You should follow-up with primary care so that they can refer you for possible physical therapy. Patient return to the emergency department for new or worsening symptoms to include loss of sensation at or below the waist, loss of control of bowel or bladder movements or urinary retention. Prescriptions: Cyclobenzaprine HCl [Flexeril 10 mg Tablet] 10 mg PO TIDP PRN #30 tab PRN Reason: Hydrocodone/Acetaminophen [Koppel 5-325 mg Tablet] 1 tab PO Q6H #12 tablet Forms: Return to Work Referrals: [facility] [Provider Group] - Follow up as needed RUDDY CAST MD [COMMUNITY BASED STAFF] - Follow up as needed
[2020-07-12] MEDS ORDERED: KETOROLAC TROMETHAMINE 60 MG/2 ML SDV IM ONE (08:36)
[2020-07-12] MEDS ORDERED: DIAZEPAM 5 MG TABLET PO ONE (08:36)
[2020-07-12] MEDS ORDERED: LIDOCAINE 5% (700 MG) TRANSDERMAL ADH..PATCH TP ONE (08:36)
[2020-07-12] MEDS ORDERED: DEXAMETHASONE SOD PHOS INJ 10 MG/1 ML VIAL IM ONE (08:36)
[2020-07-12] MEDS ORDERED: DEXAMETHASONE SOD PHOSPHATE INJ 4 MG/1 ML VIAL ONE (08:49)
--- NOTE | 2020-07-12 09:12 | RADIOLOGY REPORT (SQ) ---
EXAM DESCRIPTION: CT LUMBAR SPINE WITHOUT IMAGES COMPLETED DATE/TIME: 07/12/2020 9:00 am REASON FOR STUDY: Low back pain/R leg pain/2nd visit COMPARISON: None. TECHNIQUE: Axial images acquired through the lumbar spine without intravenous contrast. Images revi ewed with lung, soft tissue and bone windows. Reconstructed coronal and sagittal MPR images reviewed . All images stored on PACS. All CT scanners at this facility use dose modulation, iterative reconstruction, and/or weight based d osing when appropriate to reduce radiation dose to as low as reasonably achievable (ALARA). [facility]: Dose Right [facility]: CareDose [facility]: Dose Right [facility]: Teradose 4D [facility]: [employer] RADIATION DOSE: mGy. LIMITATIONS: None. FINDINGS: SEGMENTATION: Normal. No transitional anatomy. ALIGNMENT: Normal. VERTEBRAL BODIES: No fractures. No dislocation. No acute findings. DISCS: Disc space narrowing, vacuum disc and erosive endplate changes at L5-S1. Small central disc h erniation. Mild spinal stenosis. PEDICLES, TRANSVERSE PROCESSES: No fractures. No dislocation. No acute findings. FACETS, POSTERIOR ELEMENTS: Mild facet arthropathy. HARDWARE: None in the spine. VISUALIZED RIBS: No fractures. SOFT TISSUES: No significant or acute finding in adjacent soft tissues. OTHER: No other significant finding. IMPRESSION: Spondylosis L5-S1. Lytic endplate changes, probably due to chronic inflammation. Canno t entirely exclude discitis. Correlation with sed rate is recommended. TECHNICAL DOCUMENTATION: JOB ID: [id number] Quality ID # [id number]: Final reports with documentation of one or more dose reduction techniques (e.g., Au tomated exposure control, adjustment of the mA and/or kV according to patient size, use of iterative reconstruction technique) 2010 [employer]- All Rights Reserved Reading location - IP/workstation name: [email or web address]
[2020-07-12 10:51] LABS: ABSOLUTE BASOPHILS # (AUTO) 0.1 10^3/uL (0.0-0.2); ABSOLUTE EOSINOPHILS # (AUTO) 0.3 10^3/uL (0.0-0.6); ABSOLUTE LYMPHOCYTES (AUTO) 1.6 10^3/uL (0.5-4.7); ABSOLUTE MONOCYTES (AUTO) 0.4 10^3/uL (0.1-1.4); ABSOLUTE NEUT (AUTO) 5.8 10^3/uL (1.7-8.2); BASOPHILS % (AUTO) 0.6 % (0-2); EOSINOPHILS % (AUTO) 3.7 % (0-6); HEMATOCRIT 43.1 % (37.9-51.0); HEMOGLOBIN 14.6 g/dL (13.5-17.0); LYMPHOCYTES % (AUTO) 19.4 % (13-45); MEAN CORPUSCULAR HEMOGLOBIN 30.8 pg (27.0-33.4); MEAN CORPUSCULAR HGB CONC 33.9 g/dL (32.0-36.0); MEAN CORPUSCULAR VOLUME 91 fl (80-97); MONOCYTES % (AUTO) 4.5 % (3-13); PLATELET COUNT 243 10^3/uL (150-450); RED BLOOD COUNT 4.76 10^6/uL (4.35-5.55); RED CELL DISTRIBUTION WIDTH 13.3 % (11.5-14.0); SEGMENTED NEUTROPHILS % (AUTO) 71.8 % (42-78); TOTAL CELLS COUNTED % (AUTO) 100 %; WHITE BLOOD COUNT 8.1 10^3/uL (4.0-10.5)
[2020-07-12 11:13] LABS: ALBUMIN 3.5 g/dL (3.5-5.0); ALKALINE PHOSPHATASE 63 U/L (38-126); ASPARTATE AMINO TRANSFERASE 28 U/L (17-59); BILIRUBIN,TOTAL 0.4 mg/dL (0.2-1.3); BLOOD UREA NITROGEN 12 mg/dL (7-20); CALCIUM 8.7 mg/dL (8.4-10.2); GLUCOSE 96 mg/dL (75-110); POTASSIUM 3.8 mmol/L (3.6-5.0); TOTAL PROTEIN 6.3 g/dL (6.3-8.2)
[2020-07-12 11:17] LABS: CARBON DIOXIDE 28 mmol/L (22-30); CHLORIDE 107 mmol/L (98-107)
[2020-07-12 11:19] LABS: C-REACTIVE PROTEIN < 5.0 mg/L (<10.0)
[2020-07-12 11:39] LABS: ANION GAP 4 (5-19)
[2020-07-12 12:03] LABS: ERYTHROCYTE SEDIMENTATION RATE 8 mm/hr (0-15)
[2020-07-12 12:55] VITALS: BP 115/75
[2020-07-12 13:05] LABS: APPEARANCE,URINE CLEAR; BILIRUBIN,URINE NEGATIVE (NEGATIVE); COLOR,URINE YELLOW; GLUCOSE, URINE NEGATIVE (NEGATIVE); KETONES,URINE NEGATIVE (NEGATIVE); PROTEIN,URINE NEGATIVE (NEGATIVE); URINE SPECIFIC GRAVITY 1.019
--- NOTE | 2020-07-12 13:17 | RADIOLOGY REPORT (SQ) ---
EXAM DESCRIPTION: MRI LUMBAR SPINE COMBO IMAGES COMPLETED DATE/TIME: 07/12/2020 12:45 pm REASON FOR STUDY: low back pain, eval for discitis COMPARISON: 07/08/2020 and 07/12/2020 TECHNIQUE: Sagittal and Axial imaging includes T1, T1 post gadolinium, T2, STIR and gradient echo se quences. Coronal T2/HASTE imaging. CONTRAST TYPE AND DOSE: 15 mL Prohance. RENAL FUNCTION: Not indicated. ACR Type II contrast agent associated with few, if any, unconfounded cases of NSF LIMITATIONS: None. FINDINGS: VISUALIZED UPPER ABDOMEN: Limited evaluation. No acute or suspicious findings suggested. SEGMENTATION: No transitional anatomy. The lowest well-developed disc space is labeled L5-S1. ALIGNMENT: Anatomic. VERTEBRAE: Intact. No fractures. BONE MARROW: Enhancing marrow edema is seen involving the L5-S1 apposing endplates. Marrow signal is otherwise normal. DISC SIGNAL: Intervertebral disc desiccation and loss of height are seen at the L5-S1 level without p ost gadolinium enhancement. POSTERIOR ELEMENTS: Generally intact. No pars defect evident. HARDWARE: None in the spine. CORD AND CONUS: Normal in size and signal intensity. Conus at the appropriate level. SOFT TISSUES: No aortic aneurysm seen. No bulky retroperitoneal adenopathy or mass. No paraspinal mas s or fluid. L1-L2: No significant spinal stenosis or exit foraminal stenosis. L2-L3: No significant spinal stenosis or exit foraminal stenosis. L3-L4: No significant spinal stenosis or exit foraminal stenosis. L4-L5: Shallow, broad-based posterior disc bulge with focal annular fissure. No significant central canal or neural foraminal stenosis. L5-S1: Circumferential disc bulge, asymmetric to the right with superimposed focal disc extrusion in the region of the right lateral recess with approximately 7 mm of caudal subligamentous migration wit hout free fragment. Concomitant facet arthropathy results in moderate right neural foraminal stenosi s with the appearance of contact with the exiting L5 nerve root as well as contact with the traversin g right S1 nerve root in the lateral recess. Mild left neural foraminal narrowing. Central canal ot herwise remains patent. LOWER THORACIC: Incompletely imaged. No stenosis seen. SACRUM: Visualized upper sacrum intact. ENHANCEMENT: No abnormal enhancement. OTHER: No other significant findings. IMPRESSION: No evidence of discitis/osteomyelitis. Lumbosacral junction spondylotic changes notable for focal disc extrusion with 7 mm of caudal subligamentous migration without free fragment. These findings result in moderate right neural foraminal stenosis with the appearance of contact with the r ight L5 and S1 nerve roots as detailed above. TECHNICAL DOCUMENTATION: JOB ID: [id number] 2010 [employer] All Rights Reserved Reading location - IP/workstation name: [email or web address]
[2020-07-12] MEDS ORDERED: METHOCARBAMOL 750 MG TABLET PO ONE (13:45)
[2020-07-12] MEDS ORDERED: OXYCODONE-ACETAMINOPHEN 5-325 MG TABLET PO ONE (13:45)
== END 2020-07-12 13:55 | disposition home or self-care (01) ==
LOC: ER 07:11
DX: M51.26 Other intervertebral disc displacement, lumbar region (principal); M79.605 Pain in left leg; M54.9 Dorsalgia, unspecified; R20.0 Anesthesia of skin; F17.200 Nicotine dependence, unspecified, uncomplicated; J45.909 Unspecified asthma, uncomplicated
CPT/HCPCS: 99285; 96372; 36415; 87040; 85025; 85652; 86140; 87077; 80053; 81001; 87186; 72158; 72131; A9576; J1100; J1885